=== PATIENT | female | born 1950 | race American Indian/Alaskan Native ===

== ENCOUNTER 2021-10-09 10:33 | Outpatient (CLI) | payer BC ==
--- NOTE | 2021-10-09 16:23 | Ultrasound Report ---
ULTRASOUND RENAL INDICATION / CLINICAL INFORMATION: [id number]. Renal disease. COMPARISON: None available. FINDINGS: RIGHT KIDNEY: Length = 9.7 cm. - Echogenicity: Increased. - Cortical Thickness: Normal. - Hydronephrosis: None. - Cyst / Mass: None. - Stones: None seen. LEFT KIDNEY: Length = 9.8 cm. - Echogenicity: Increased. - Cortical Thickness: Normal. - Hydronephrosis: None. - Cyst / Mass: None. - Stones: None seen. URINARY BLADDER: No significant abnormality. FREE FLUID: None. ADDITIONAL FINDINGS: Incidental finding of cholelithiasis. IMPRESSION: 1. 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 2. Incidental finding of cholelithiasis. Scribed by: Lorie Rodas RDMS, RVT Scribed: 10/09/2021 1:08 PM I have reviewed the images, agree with this report, and edited this report as needed. Signer Name: Venron Pathak MD Signed: 10/09/2021 4:19 PM Workstation Name: [id number]
== END 2021-10-09 10:34 | disposition home or self-care (01) ==
LOC: US 10:33
PROVIDERS: ATTEND Internal Medicine Nephrology
DX: N18.30 Chronic kidney disease, stage 3 unspecified (principal)
CPT/HCPCS: 76770